=== PATIENT | male | born 1935 | race Caucasian/White ===

== ENCOUNTER 2024-10-03 09:41 | Observation (INO) | payer MEDICARE, SELFPAY ==
[2024-10-03] VITALS (116 sets, daily range): BP systolic 78–190; BP diastolic 46–126; PULSE 51–108; RESP 11–25; TEMP 36.7; O2SAT 81–100; BMI 27.3
--- NOTE | 2024-10-03 09:42 | ECG_ITS ---
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 Measurements Intervals [place] Rate: 85 P: 6 AK: 194 QRS: -47 QRSD: 122 T: 38 QT: 398 QTc: 475 Interpretive Statements SINUS RHYTHM LEFT ANTERIOR FASCICULAR BLOCK [QRS AXIS <= -45, QR IN I, RS IN II] VOLTAGE CRITERIA FOR LVH [MEETS CRITERIA IN ONE OF: R(aVL), S(V1), R(V5), R(V5/V6)+S(V1)] No previous ECG available for comparison Electronically Signed On 10-03-2024 13:51:36 TRACER POWDER BLENDER by Rigoberto Brown M.D. [id number]
--- NOTE | 2024-10-03 09:42 | XRR_ITS ---
PROCEDURE INFORMATION: Exam: XR Chest Exam date and time: 10/03/2024 10:00 AM Age: 89 years old Clinical indication: Dyspnea; Additional info: Dyspnea/cough TECHNIQUE: Imaging protocol: Radiologic exam of the chest. Views: 1 view. COMPARISON: No relevant prior studies available. FINDINGS: Lungs: The lungs are hyperinflated. There is asymmetric prominence of the peripheral interstitium on the right. This could be acute or chronic. No focal consolidation is appreciated. Pleural spaces: Unremarkable. No pleural effusion. No pneumothorax. Heart/Mediastinum: The heart is slightly enlarged. There is calcified plaque involving the aorta. Bones/joints: There are postoperative changes status post reverse shoulder arthroplasty on the left. XR/XR chest 1V portable [id number] IMPRESSION: 1. Mild cardiomegaly. 2. Lung hyperinflation. 3. Prominence of the interstitial lung markings peripherally on the right. This could be chronic or potentially could represent an acute pneumonitis. No focal consolidation is appreciated.
[2024-10-03] MEDS: aspirin 81 mg Chew Tablet 324 MG PO (09:47)
[2024-10-03 09:57] LABS: Basophils # 0.1 10^3/uL (0.0-0.1); Basophils % 0.7 %; Eosinophils # 0.2 10^3/uL (0.0-0.8); Eosinophils % 2.7 %; Hematocrit 41.7 % (37-53); Lymphocytes # 1.8 10^3/uL (0.8-4.8); Lymphocytes % 25.8 %; Mean Corpuscular HGB Conc 33.3 g/dL (30-55); Mean Corpuscular Hemoglobin 31.3 pg (27-33); Mean Corpuscular Volume 93.9 fl (82-101); Mean Platelet Volume 9.2 fL (7.4-10.4); Monocytes # 0.6 10^3/uL (0.2-0.9); Monocytes % 8.4 %; Neutrophils # 4.45 10^3/uL (1.8-7.7); Neutrophils % 62.3 %; Nucleated Red Blood Cells % 0 %; Platelet Count 278 10^3/cmm (157-399); Red Blood Count 4.44 10^6/uL (3.85-5.65); Red Cell Distribution Width 12.1 % (12.1-15.1); White Blood Count 7.14 10^3/uL (3.29-11.43)
[2024-10-03 10:18] LABS: Troponin(5th) Baseline 13 ng/L (0-15)
[2024-10-03 10:20] LABS: Alanine Aminotransferase 10 U/L (0-41); Albumin Level 4.1 g/dL (3.5-5.2); Alkaline Phosphatase 68 U/L (40-130); Aspartate Amino Transferase 14 U/L (0-40); Blood Urea Nitrogen 15 mg/dL (8-23); Calcium 8.8 mg/dL (8.5-10.5); Carbon Dioxide 24 mmol/L (22-29); Chloride 105 mmol/L (98-107); Globulin 2.2 g/dL (1.3-4.6); Glucose 99 mg/dL (65-115); Osmolality Calculated 295 mOsm/kg (285-295); Sodium 142 mmol/L (136-145); Total Bilirubin 0.4 mg/dL (0.15-1.2); Total Protein 6.3 g/dL (6.6-8.7)
--- NOTE | 2024-10-03 10:26 | PC.PHAR ---
Pt states takes Flomax 0.4mg hs, Quinine Sulfate qpm, Senokot prn, and some medication for his throat that starts with a P. Unable to locate the medication for his throat.
[2024-10-03 10:30] LABS: Anion Gap 16.7 (5-19); Potassium 3.7 mmol/L (3.5-5.1)
--- NOTE | 2024-10-03 11:16 | ED_ITS ---
HPI - Weakness 2 General: Chief complaint: Weakness Stated complaint: cardiac Time Seen by Provider: 10/03/24 09:42 History of Present Illness: 59-year-old male presents the emergency room he was traveling to the area while he was driving he felt faint lightheaded and dizzy allowed his to drive for a while. They continue to drive and eventually made it to this area they stopped at a local truck stop got cast. Is a relieving. She began to feel worse. He flagged down a state patrol and who called EMS for them. EMS reports that while they were monitoring him he had a couple episodes where he bradycardia down into the range of the 30s and they given a single dose of atropine. He has been asymptomatic since. He has not had any chest pain since they picked him up. He has had a couple of these episodes that seem much less severe in the several days prior. Patient reports being impaired glucose tolerance he has no known history of any cardiac disease or arrhythmias Associated symptoms: Denies chest pain, chills, dysuria or fever(s) Review of Systems 2 Const: Denies: fever(s) or chills Card: Reports: palpitations and irregular heart rhythm; Denies: chest pain Resp: Denies: dyspnea GI: Denies: abdominal pain : Denies: dysuria, urinary frequency or urinary urgency Musc: Denies: neck pain or back pain Skin/Breast: Denies: rash Physical Exam 2 Const: COMMON NORMALS: no acute distress GENERAL APPEARANCE: cooperative and comfortable ORIENTATION/CONSCIOUSNESS: Yes awake, Yes oriented to person, Yes oriented to place and Yes oriented to time HENMT: COMMON NORMALS: normocephalic, atraumatic and hearing grossly normal bilaterally HEAD & SCALP: normocephalic and atraumatic Resp: COMMON NORMALS: normal respiratory effort, No retractions, No use of accessory muscles and clear to auscultation bilaterally AUSCULTATION: clear to auscultation bilaterally Cardio: COMMON NORMALS: regular rate, regular rhythm and No murmurs present (Cardio) RATE: regular rate RHYTHM: regular rhythm GI: COMMON NORMALS: Soft to palpation and No hepatosplenomegaly present A USCULTATION: Yes normoactive bowel sounds PALPATION: Yes Soft to palpation, No Tenderness to palpation present (GI), No Guarding due to palpation present (GI) and Yes No hepatosplenomegaly present Extremity: COMMON NORMALS: normal to inspection, capillary refill normal, no clubbing, cyanosis or edema, no calf tenderness and no pedal edema Neuro: SENSORIUM/ORIENTATION: Yes oriented to person, Yes oriented to place and Yes oriented to time Skin: COMMON NORMALS: no rashes or lesions noted GENERAL SKIN EXAM: no rashes or lesions noted Course 2 Vital Signs: Vital signs: Vital Signs Temperature 98.1 F 10/03/24 13:45 Pulse Rate 69 10/03/24 13:45 Respiratory Rate 17 10/03/24 13:45 Blood Pressure 136/79 10/03/24 13:45 Pulse Oximetry 97 10/03/24 13:45 Oxygen Delivery Me thod Room Air 10/03/24 14:16 MDM - Weakness Medical Decision Making Laboratory test unremarkable however patient does have documented rhythm down into the 20s and 30s he did respond to atropine he said no further bradycardic episodes since. While we were interviewing the patient he states he began to feel lightheaded and dizzy but his rhythm remained in normal sinus rhythm with no bradycardia. Cardiac enzymes are negative. Will place the patient on observation in ICU discussed with hospitalist orders written Medical Records I reviewed the patient's medical records. Lab Data I reviewed the patient's lab results. 10/03/24 09:51 10/03/24 09:51 Radiology Impressions Chest X-Ray 10/03/24 09:42 IMPRESSION: 1. Mild cardiomegaly. 2. Lung hyperinflation. 3. Prominence of the interstitial lung markings peripherally on the right. This could be chronic or potentially could represent an acute pneumonitis. No focal consolidation is appreciated. Laboratory Results WBC 7.14 10^3/uL (3.29-11.43) 10/03/24 09:51 RBC 4.44 10^6/uL (3.85-5.65) 10/03/24 09:51 Hgb 13.90 g/dL (11.27-16.99) 10/03/24 09:51 Hct 41.7 % (37-53) 10/03/24 09:51 MCV 93.9 fl (82-101) 10/03/24 09:51 MCH 31.3 pg (27-33) 10/03/24 09:51 MCHC 33.3 g/dL (30-55) 10/03/24 09:51 RDW 12.1 % (12.1-15.1) 10/03/24 09:51 Plt Count 278 10^3/cmm (157-399) 10/03/24 09:51 MPV 9.2 fL (7.4-10.4) 10/03/24 09:51 Neut % (Auto) 62.3 % 10/03/24 09:51 Lymph % (Auto) 25.8 % 10/03/24 09:51 Wallace % (Auto) 8.4 % 10/03/24 09:51 Eos % (Auto) 2.7 % 10/03/24 09:51 Baso % (Auto) 0.7 % 10/03/24 09:51 Neut # (Auto) 4.45 10^3/uL (1.8-7.7) 10/03/24 09:51 Lymph # (Auto) 1.8 10^3/uL (0.8-4.8) 10/03/24 09:51 Wallace # (Auto) 0.6 10^3/uL (0.2-0.9) 10/03/24 09:51 Eos # (Auto) 0.2 10^3/uL (0.0-0.8) 10/03/24 09:51 Baso # (Auto) 0.1 10^3/uL (0.0-0.1) 10/03/24 09:51 Nucleated RBC % (auto) 0 % 10/03/24 09:51 Nucleated RBCs # 0.0 /100WBC 10/03/24 09:51 PT 14.00 SECONDS (12.1-14.9) 10/03/24 09:51 INR 1.04 (0.8-1.2) 10/03/24 09:51 D-Dimer 0.44 ug/mLFEU (0-0.59) 10/03/24 09:51 Sodium 142 mmol/L (136-145) 10/03/24 09:51 Potassium 3.7 mmol/L (3.5-5.1) 10/03/24 09:51 Chloride 105 mmol/L (98-107) 10/03/24 09:51 Carbon Dioxide 24 mmol/L (22-29) 10/03/24 09:51 Anion Gap 16.7 (5-19) 10/03/24 09:51 BUN 15 mg/dL (8-23) 10/03/24 09:51 Creatinine 0.9 mg/dL (0.7-1.2) 10/03/24 09:51 GFR Calculation Not Reportable 10/03/24 09:51 Glucose 99 mg/dL (65-115) 10/03/24 09:51 Estimat Average Glucose 128 10/03/24 09:51 Hemoglobin A1c 6.1 % (4.0-6.0) H 10/03/24 09:51 Calculated Osmolality 295 mOsm/kg (285-295) 10/03/24 09:51 Calcium 8.8 mg/dL (8.5-10.5) 10/03/24 09:51 Iron 68 ug/dL (59-158) 10/03/24 09:51 TIBC 204 mcg/dl 10/03/24 09:51 % Saturation 33.3 % (20-50) 10/03/24 09:51 Unsat Iron Binding 136 ug/dL (112-347) 10/03/24 09:51 Total Bilirubin 0.4 mg/dL (0.15-1.2) 10/03/24 09:51 AST 14 U/L (0-40) 10/03/24 09:51 ALT 10 U/L (0-41) 10/03/24 09:51 Alkaline Phosphatase 68 U/L (40-130) 10/03/24 09:51 Troponin T Baseline 13 ng/L (0-15) 10/03/24 09:51 Troponin T 120 Minute 12.10 ng/L (0-15) 10/03/24 11:43 Delta Troponin T -0.90 ABS# (0-10) L 10/03/24 11:43 Total Protein 6.3 g/dL (6.6-8.7) L 10/03/24 09:51 Albumin 4.1 g/dL (3.5-5.2) 10/03/24 09:51 Globulin 2.2 g/dL (1.3-4.6) 10/03/24 09:51 Vitamin B12 269 pg/mL (232-1245) 10/03/24 09:51 Procalcitonin 0.04 ng/mL (0-0.5) 10/03/24 09:51 TSH 1.22 uIU/mL (0.27-4.20) 10/03/24 09:51 Urine Color Yellow (Yellow) 10/03/24 10:06 Urine Appearance Clear (CLEAR) 10/03/24 10:06 Urine pH 8.0 (5-7) A 10/03/24 10:06 Ur Specific [place] 1.007 (1.005-1.030) 10/03/24 10:06 Urine Protein Negative (Negative) 10/03/24 10:06 Urine Glucose (UA) Negative (Normal) 10/03/24 10:06 Urine Ketones Negative (Negative) 10/03/24 10:06 Urine Blood Negative (Negative) 10/03/24 10:06 Urine Nitrate Negative (Negative) 10/03/24 10:06 Urine Bilirubin Negative (Negative) 10/03/24 10:06 Urine Urobilinogen 1.0 mg/dL (Negative) 10/03/24 10:06 Ur Leukocyte Esterase Negative (Negative) 10/03/24 10:06 Urine RBC 0-2 /hpf (0-2) 10/03/24 10:06 Urine WBC 0-5 /hpf (0-5) 10/03/24 10:06 Ur Squamous Epith Cells 0-5 /hpf (0-5) 10/03/24 10:06 Amorphous Sediment Not Reportable 10/03/24 10:06 Urine Bacteria None seen /hpf (NONE) 10/03/24 10:06 Hyaline Casts 0-4 /lpf H 10/03/24 10:06 Urine Opiates Screen Negative ng/mL (Negative) 10/03/24 10:06 Ur Barbiturates Screen Negative ng/mL (Negative) 10/03/24 10:06 Ur Phencyclidine Scrn Negative ng/mL (Negative) 10/03/24 10:06 Ur Amphetamines Screen Negative ng/mL (Negative) 10/03/24 10:06 U Benzodiazepines Scrn Negative ng/mL (Negative) 10/03/24 10:06 Urine Cocaine Screen Negative ng/mL (Negative) 10/03/24 10:06 U Marijuana (THC) Screen Negative ng/mL (Negative) 10/03/24 10:06 All radiology interpretation(s) finalized by discharge Discharge Plan Discharge Patient Disposition: Admitted As Inpatient Admit Provider: Zeina,Asif Clinical Impression: Symptomatic bradycardia, Near syncope Condition: Stable Coding Level of Care Code ED Mail Sorting Supervisor for Chg Fwd Related Data Home Medications Medication Instructions Recorded Confirmed quinine sulfate 324 mg capsule 324 mg PO QPM 10/03/24 10/03/24 sennosides 8.6 mg tablet (Senokot) 8.6 mg PO QPM PRN Constipation 10/03/24 10/03/24 tamsulosin 0.4 mg capsule (Flomax) 0.4 mg PO QPM 10/03/24 10/03/24 Allergies Allergy/AdvReac Type Severity Reaction Status Date / Time morphine Allergy ADR-Confusi Verified 10/03/24 09:48 on
--- NOTE | 2024-10-03 11:43 | ECG_ITS ---
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 Measurements Intervals [place] Rate: 76 P: -1 CO: 203 QRS: -46 QRSD: 125 T: 16 QT: 420 QTc: 474 Interpretive Statements SINUS RHYTHM WITH OCCASIONAL VENTRICULAR PREMATURE COMPLEXES POSSIBLE RIGHT VENTRICULAR CONDUCTION DELAY [RSR (QR) IN V1/V2] LEFT ANTERIOR FASCICULAR BLOCK [QRS AXIS <= -45, QR IN I, RS IN II] VOLTAGE CRITERIA FOR LVH [MEETS CRITERIA IN ONE OF: R(aVL), S(V1), R(V5), R(V5/V6)+S(V1)] POSSIBLE SEPTAL MYOCARDIAL INFARCTION , PROBABLY OLD [30 ms Q WAVE IN V1/V2] Compared to ECG 10/03/2024 09:45:47 Ventricular premature complex(es) now present Myocardial infarct finding now present Electronically Signed On 10-03-2024 13:54:37 RACKMAN by Rigoberto Brown M.D. [id number]
[2024-10-03 12:14] LABS: Amphetamines Screen Urine Negative (Negative); Barbiturates Screen Urine Negative (Negative); Benzodiazepines Screen Urine Negative (Negative); Cocaine Screen Urine Negative (Negative); Opiate Screen Urine Negative (Negative); PCP Screen Urine Negative (Negative); THC Screen Urine Negative (Negative)
[2024-10-03 12:18] LABS: INR 1.04 (0.8-1.2)
[2024-10-03 12:20] LABS: D Dimer 0.44 ug/mLFEU (0-0.59)
[2024-10-03 12:32] LABS: Procalcitonin 0.04 ng/mL (0-0.5)
--- NOTE | 2024-10-03 12:58 | USCV_ITS ---
Raman Estrella Age: 89 Gender: M : 1935 Exam Date: 10/03/2024 16:09 Ordering Phys: Asif Pastrana MD Technologist: Exam Location: [facility] [place] Indication: Bradycardia BP: 180 / 99 HR: 73 Rhythm: Sinus Technical Quality: Adequate MEASUREMENTS (Male / Female) Normal Values 2D ECHO LV Diastolic Diameter PLAX 4.8 cm 4.2 - 5.9 / 3.9 - 5.3 cm IVS Diastolic Thickness 1.1 cm 0.6 - 1.0 / 0.6 - 0.9 cm IVS Systolic Thickness 1.5 cm LVPW Diastolic Thickness 1.6 cm 0.6 - 1.0 / 0.6 - 0.9 cm LVPW Systolic Thickness 1.5 cm LVOT Diameter 2.3 cm LV Ejection Fraction 2D Teich 42.5 % LV Ejection Fraction MOD 4C 64.1 % LV Ejection Fraction MOD 2C 54.7 % LV Ejection Fraction 2C AL 56.2 % LA Diameter 4.6 cm RA Systolic Volume 4C AL 48.2 ml RA Systolic Volume 4C MOD 44.0 ml Aorta at Sinotubular Diameter 2.9 cm M-MODE LA Ao Ratio MM 1.2 AV Cusp Separation MM 2.0 cm DOPPLER AV Peak Velocity 201.0 cm/s LVOT Peak Velocity 69.0 cm/s AV Area Cont Eq vti 2.0 cm squared AV Area Cont Eq pk 1.4 cm squared MV Peak Velocity 112.0 cm/s MV Area PHT 2.1 cm squared Mitral E to A Ratio 0.6 TV Peak Velocity 334.5 cm/s TR Peak Velocity 387.0 cm/s TR Peak Gradient 59.9 mmHg TV Peak E Velocity 80.0 cm/s PV Peak Velocity 91.0 cm/s FINDINGS Left Ventricle Left ventricle is normal in size. LV systolic function is normal with EF of 50 to 55%. No regional wall motion abnormalities. Basal septal hypertrophy. Grade 1 diastolic dysfunction. Right Ventricle Normal in size and function Right Atrium Normal in size Left Atrium Normal in size Mitral Valve Structurally normal mitral valve. Mild mitral regurgitation. Aortic Valve Aortic valve is thickened. No significant stenosis or regurgitation. Tricuspid Valve Insufficient TR jet to calculate RVSP Pulmonic Valve Mild pulmonic regurgitation. Insufficient TR jet to calculate RVSP Pericardium Normal Aorta Normal in size IVC Not well visualized. CONCLUSIONS LV systolic function is normal with EF of 50 to 55%. Basal septal hypertrophy. Grade 1 diastolic dysfunction. Mild mitral regurgitation. No comparison studies are available. Curry Garcia MD (Electronically Signed) Final Date: 04 October 2024 12:14 S
[2024-10-03 13:07] LABS: Bilirubin Urine Negative (Negative); Blood Urine Negative (Negative); Glucose Urine UA Negative (Normal); Ketones Urine Negative (Negative); Leukocyte Esterase Urine Negative (Negative); Nitrate Urine Negative (Negative); Protein Urine Negative (Negative); Specific Gravity, Urine 1.007 (1.005-1.030); Urine Appearance Clear (CLEAR); Urine Color Yellow (Yellow)
[2024-10-03 13:12] LABS: Add Urine Microscopic? YES; Bacteria Urine None Seen /hpf; Hyaline Casts Urine 0-4 /lpf; RBC Urine 0-2 /hpf (0-2); Squamous Epithelial Cell Urine 0-5 /hpf (0-5); WBC Urine 0-5 /hpf (0-5)
[2024-10-03 13:19] LABS: Estmated Average Glucose 128; Hemoglobin A1C 6.1 % (4.0-6.0)
[2024-10-03 13:45] LABS: Iron 68 ug/dL (59-158); Percent Saturation 33.3 % (20-50); Thyroid Stimulating Hormone 1.22 uIU/mL (0.27-4.20); Total Iron Binding Capacity 204 mcg/dl; Unsaturated Iron Binding 136 ug/dL (112-347); Vitamin B12 269 pg/mL (232-1245)
--- NOTE | 2024-10-03 15:05 | P.HP_ITS ---
Providers/Chief Complaint 2 Admitting Physician: Asif Pastrana MD Primary Care Provider: Acosta Bragg DO Chief Complaint: cardiac History of Present Illness Raman Estrella is a 89 year old male with no segment past medical history above traveling today to meet his family for Thanksgiving dinner when he started having left-sided chest heaviness associated with funny feeling with episodes of almost passing out. Patient had similar episodes almost 4 times while [address] and each time the events were getting worse hence he decided to tail puller. After pulling over he almost felt as if he is going to pass out hence he called for a real estate rental agent who called the EMS. On arrival as per the EMS his heart rates were running in 30s and he was given dose of IV atropine. Patient has not had any further episodes since then. Denies any nausea, vomiting, headache, runny nose, cough today. Denies having any similar episodes in the past. Denies having any chest pain on rest on exertion in the past. Denies having any family or personal history of heart disease. Denies any changes in medications recently. Denies any use of new herbal products. Review of Systems 2 General: Reports: 10 or more systems reviewed and unremarkable except in HPI and below Const: Denies: fever(s), chills, body aches, change in appetite, change in weight, malaise, night sweats, diaphoresis, change in sleep pattern, daytime sleepiness or snoring Eyes: Denies: change in vision, blurry vision, photophobia, eye discomfort or eye discharge ENMT: Denies: throat pain, enlarged tonsils, hoarseness, mouth pain, oral sores, dry mouth, tinnitus, nasal congestion or post nasal drip Card: Denies: chest pain, palpitations, irregular heart rhythm, edema, swelling of feet/ankles, lightheadedness, syncope, pre-syncope, dyspnea on exertion, orthopnea, leg pain with exertion or acrocyanosis Resp: Denies: dyspnea, productive cough, non-productive cough, wheezing, stridor, pain on inspiration, change in phlegm color, hemoptysis or chest congestion GI: Denies: abdominal pain, nausea, vomiting, hematemesis, coffee ground emesis, dysphagia, heartburn, diarrhea, constipation, bloating, GI cramping, change in bowel habits, pain on defecation, hematochezia or melena : Denies: flank pain, difficulty urinating, dysuria, urinary frequency, urinary urgency, urinary hesitancy, urinary dribbling, difficulty starting urination, change in urine stream, nocturia or hematuria Musc: Denies: neck pain, back pain, extremity pain, joint pain, joint swelling, joint redness, joint stiffness or limited range of motion Neuro: Denies: headache(s), numbness in extremities, weakness in extremities, sensory changes, lack of coordination, difficulty walking, frequent falls, dizziness, vertigo, confusion, Slurred speech present, difficulty communicating thoughts or seizure-like activity Psych: Denies: anxiety, depression, mood swings, panic attacks, hopelessness or irritability Endo: Denies: polyuria, polydipsia, tired all the time, cold intolerance, excessive sweating, flushing or heat intolerance Jesse/Lymph: Denies: easy bruising or easy bleeding All/Imm: Denies: tongue swelling, facial swelling or acute wheezing Medications/Allergies Home Medications Medication Instructions Recorded Confirmed Last Taken Type quinine sulfate 324 mg capsule 324 mg PO QPM 10/03/24 10/03/24 10/02/24 History sennosides 8.6 mg tablet (Senokot) 8.6 mg PO QPM PRN Constipation 10/03/24 10/03/24 10/02/24 History tamsulosin 0.4 mg capsule (Flomax) 0.4 mg PO QPM 10/03/24 10/03/24 10/02/24 History Allergies Allergy/AdvReac Type Severity Reaction Status Date / Time morphine Allergy ADR-Confusi Verified 10/03/24 09:48 on PFSH Acute 2 PFSH: Medical History (Updated 10/03/24 @ 15:06 by Asif Pastrana MD) SBO (small bowel obstruction) Surgical History (Updated 10/03/24 @ 15:06 by Asif Pastrana MD) H/O knee surgery H/O shoulder surgery Social History (Updated 10/03/24 @ 15:24 by Asif Pastrana MD) Smoking and tobacco/nicotine status: never used tobacco/nicotine Second hand smoke exposure: No Alcohol intake: never Substance/Drug Use: never Caregiver/support person: Yes Lives independently: Yes Household members: spouse Housing: House Marital status: Vitals/I&O/Wt Last Vital Signs Temp 98.1 F 10/03/24 13:45 Pulse 69 10/03/24 13:45 Resp 17 10/03/24 13:45 BP 136/79 10/03/24 13:45 Pulse Ox 97 10/03/24 13:45 O2 Del Method Room Air 10/03/24 14:16 Weight last 48 hrs Weight 84.17 kg Weight 83.915 kg Physical Exam 2 Narrative: General: No acute distress, AO x3 HEENT: PERRLA, pupils bilaterally equal and reactive Chest: Normal vesicular breath sounds, no added sounds, equal good air entry bilaterally CVS: S1-S2 regular, no murmurs, no tachycardia, no gallops, no rubs Abdomen: Soft, nontender, no organomegaly, bowel sounds present Neuro: No focal deficits, no facial deformity, AO x3, power 5/5 in all limbs Data 10/03/24 09:51 10/03/24 09:51 A&P Assessment and plan (1) Near syncope: Most likely in setting of symptomatic bradycardia. Noticed by EMS on arrival at the scene. Received 1 dose of atropine. Check orthostatic blood pressures. (2) Symptomatic bradycardia: As noticed by EMS. Telemonitoring. Check TSH, electrolytes, troponin cycle. Check echocardiogram. Plan to monitor overnight. Discussed further options of possibility of an event monitor at discharge along with a possible stress test given symptoms being preceded by chest heaviness in detail with the patient. He states if he does not have any further episodes overnight he would want to be discharged so he can follow-up with his PCP in his town and then get things done closer to his house. Check A1c, lipid panel. If he has recurrent episode can plan to start dopamine versus IV atropine. Monitor blood pressures. Goal blood pressure less than 140/90 mmHg. Plan Full code Cardiac diet Heparin for DVT prophylaxis Protonix for PUD prophylaxis Continue with home dose of Flomax. Attestations 2 Medical Necessity Statement*: Admitted under observation for management of near syncope in setting of symptomatic bradycardia for which patient required IV atropine by EMS in field. Diagnoses Near syncope R55 Symptomatic bradycardia R00.1
[2024-10-03 16:15] LABS: Troponin 5 6HR 12.33 ng/L (0-15)
[2024-10-03 16:36] LABS: Troponin 5 6HR Delta -0.67 ng/L (0-12)
[2024-10-03 20:56] LABS: Glucose Point of Care 197 mg/dL (70-110)
[2024-10-04] VITALS (65 sets, daily range): BP systolic 111–168; BP diastolic 63–92; PULSE 51–90; RESP 10–29; TEMP 36.7–36.8; O2SAT 89–100; BMI 27.1
[2024-10-04] MEDS: heparin 5,000 unit/mL INJ 1 mL 5000 UNIT SUBCUT (00:47)
[2024-10-04 03:48] LABS: Basophils # 0.1 10^3/uL (0.0-0.1); Basophils % 0.8 %; Eosinophils # 0.4 10^3/uL (0.0-0.8); Eosinophils % 5.5 %; Lymphocytes # 1.7 10^3/uL (0.8-4.8); Lymphocytes % 25.1 %; Mean Corpuscular HGB Conc 32.9 g/dL (30-55); Mean Corpuscular Hemoglobin 31.4 pg (27-33); Mean Corpuscular Volume 95.3 fl (82-101); Mean Platelet Volume 9.4 fL (7.4-10.4); Monocytes # 0.6 10^3/uL (0.2-0.9); Monocytes % 9.3 %; Neutrophils # 3.88 10^3/uL (1.8-7.7); Nucleated Red Blood Cells % 0 %; Platelet Count 249 10^3/cmm (157-399); Red Cell Distribution Width 12.3 % (12.1-15.1); White Blood Count 6.57 10^3/uL (3.29-11.43)
[2024-10-04 04:10] LABS: Alanine Aminotransferase 7 U/L (0-41); Albumin Level 3.7 g/dL (3.5-5.2); Alkaline Phosphatase 62 U/L (40-130); Anion Gap 13.8 (5-19); Aspartate Amino Transferase 12 U/L (0-40); Blood Urea Nitrogen 13 mg/dL (8-23); Calcium 8.7 mg/dL (8.5-10.5); Carbon Dioxide 27 mmol/L (22-29); Chloride 106 mmol/L (98-107); Creatinine Clr Calc Pharmacy 70.0115; Globulin 2.4 g/dL (1.3-4.6); Glucose 109 mg/dL (65-115); Magnesium 2.2 mg/dL (1.7-2.3); Osmolality Calculated 297 mOsm/kg (285-295); Phosphorus 4.2 mg/dL (2.5-4.5); Potassium 3.8 mmol/L (3.5-5.1); Sodium 143 mmol/L (136-145); Total Bilirubin 0.4 mg/dL (0.15-1.2); Total Protein 6.1 g/dL (6.6-8.7)
[2024-10-04 04:23] LABS: Procalcitonin 0.05 ng/mL (0-0.5)
[2024-10-04 04:24] LABS: Folate Level 8.5 ng/mL (4.5-32.2)
[2024-10-04 04:34] LABS: Cholesterol 155 mg/dL (0-200); HDL Cholesterol 47 mg/dL (60-100); LDL Cholesterol Calculated 96 mg/dL (50-129); LDL HDL Ratio 2.04 RATIO (0.00-3.22); Triglycerides 61 mg/dL (0-150)
--- NOTE | 2024-10-04 12:27 | P.CONIM_ITS ---
Providers/Reason For Consult 2 Attending Physician: Asif Pastrana MD Primary Care Provider: Acosta Bragg DO History of Present Illness History of Present Illness Raman Estrella is a 89 year old male Medications/Allergies Home Medications Medication Instructions Recorded Confirmed Last Taken Type quinine sulfate 324 mg capsule 324 mg PO QPM 10/03/24 10/03/24 10/02/24 History sennosides 8.6 mg tablet (Senokot) 8.6 mg PO QPM PRN Constipation 10/03/24 10/03/24 10/02/24 History tamsulosin 0.4 mg capsule (Flomax) 0.4 mg PO QPM 10/03/24 10/03/24 10/02/24 History Allergies Allergy/AdvReac Type Severity Reaction Status Date / Time morphine Allergy ADR-Confusi Verified 10/03/24 09:48 on Current Medications Generic Name Dose Route Start Last Admin Trade Name Freq PRN Reason Stop Dose Admin Heparin Sodium (Porcine) 5,000 unit 10/03/24 13:42 10/04/24 00:47 Heparin 5,000 Unit/Ml Inj 1 Ml SUBCUT 5,000 unit Q12H BRINDA Administration Pantoprazole Sodium 40 mg 10/03/24 13:42 10/03/24 14:37 Pantoprazole 40 Mg Sdv IVP Not Given Q24H BRINDA Tamsulosin HCl 0.4 mg 10/03/24 18:00 10/03/24 17:31 Tamsulosin 0.4 Mg Capsule PO Not Given QPM BRINDA PFSH Acute 2 PFSH: Medical History (Updated 10/03/24 @ 15:06 by Asif Pastrana MD) SBO (small bowel obstruction) Surgical History (Updated 10/03/24 @ 15:06 by Asif Pastrana MD) H/O knee surgery H/O shoulder surgery Social History (Updated 10/03/24 @ 15:24 by Asif Pastrana MD) Smoking and tobacco/nicotine status: never used tobacco/nicotine Second hand smoke exposure: No Alcohol intake: never Substance/Drug Use: never Caregiver/support person: Yes Lives independently: Yes Household members: spouse Housing: House Marital status: Vitals/I&O/Wt Last Vital Signs Temp 98.2 F 10/04/24 04:00 Pulse 66 10/04/24 12:00 Resp 12 10/04/24 12:00 BP 152/81 10/04/24 12:00 Pulse Ox 92 10/04/24 12:00 O2 Del Method Room Air 10/04/24 06:30 10/03/24 10/04/24 10/04/24 22:59 06:59 14:59 Intake Total 380 / 380 480 / 860 120 / 120 Balance 380 / 380 480 / 860 120 / 120 Weight last 48 hrs Weight 183 lb 11.2 oz Weight 185 lb 9 oz Weight 185 lb Data 10/04/24 03:21 10/04/24 03:21 Coding Level of Care Code Acute Code for Chg Fwd
--- NOTE | 2024-10-04 13:08 | P.DS_ITS ---
Discharge Providers Date of Admission: 10/03/24 13:37 Date of Discharge: October 04, 2024 Attending Provider at Admission: Asif Pastrana MD Attending Provider at Discharge: Asif Pastrana MD Consults: Cardiology: Dr. Garcia Primary Care Provider: Acosta Bragg DO Diagnoses at Discharge Discharge Diagnosis (1) Near syncope: Status: Acute (2) Symptomatic bradycardia: Status: Acute Reason for Visit Reason for Visit: cardiac Hospital Course Hospital Course Raman Estrella is a 89 year old male with no segment past medical history above traveling today to meet his family for Thanksgiving dinner when he started having left-sided chest heaviness associated with funny feeling with episodes of almost passing out. Patient had similar episodes almost [address] and each time the events were getting worse hence he decided to lung puller. After pulling over he almost felt as if he is going to pass out hence he called for a real estate sales associate who called the EMS. On arrival as per the EMS his heart rates were running in 30s and he was given dose of IV atropine. Patient has not had any further episodes since then. Denies any nausea, vomiting, headache, runny nose, cough today. Denies having any similar episodes in the past. Denies having any chest pain on rest on exertion in the past. Denies having any family or personal history of heart disease. Denies any changes in medications recently. Denies any use of new herbal products. Patient was admitted under observation for evaluation and monitoring for symptomatic bradycardia. He is further blood work including electrolytes, thyroid panel, vitamin B12 levels remain normal. Patient's troponin levels remained negative. Echocardiogram was done which showed normal EF without regional wall motion abnormality or further workup with structure abnormality. Patient did have few episodes of heart rate going down to 30s with occasional APCs and VPCs to patient remained asymptomatic. Cardiology was consulted for further recommendations. Patient was given an option stress test and event monitor with possibility of need for pacemaker as an outpatient as he did not have any more than 3 seconds of pause on telemetry. Patient verbalized understanding and would want to to be discharged home for further workup as an outpatient. His care was also discussed with his outpatient primary care provider and all the directions were discussed in detail. He is been discharged in hemodynamically stable condition with advised to avoid driving, follow-up with PCP as an outpatient at the earliest for outpatient stress test and event monitor placement. Physical Exam Narrative: General: No acute distress, AO x3 HEENT: PERRLA, pupils bilaterally equal and reactive Chest: Normal vesicular breath sounds, no added sounds, equal good air entry bilaterally CVS: S1-S2 regular, no murmurs, no tachycardia, no gallops, no rubs Abdomen: Soft, nontender, no organomegaly, bowel sounds present Neuro: No focal deficits, no facial deformity, AO x3, power 5/5 in all limbs Discharge Data Studies Completed and Pending Completed Studies During Hospitalization Category Date Time Status XR chest 1V portable [id number] Stat Exams 10/03/24 09:42 Completed CV. echo complete* [id number] Routine Ultrasound 10/03/24 12:58 Completed Radiology Impressions Chest X-Ray 10/03/24 09:42 IMPRESSION: 1. Mild cardiomegaly. 2. Lung hyperinflation. 3. Prominence of the interstitial lung markings peripherally on the right. This could be chronic or potentially could represent an acute pneumonitis. No focal consolidation is appreciated. Echocardiogram: CONCLUSIONS LV systolic function is normal with EF of 50 to 55%. Basal septal hypertrophy. Grade 1 diastolic dysfunction. Mild mitral regurgitation. No comparison studies are available. Curry Garcia MD (Electronically Signed) Final Date: 04 October 2024 Laboratory Results WBC 6.57 10^3/uL (3.29-11.43) 10/04/24 03:21 RBC 4.30 10^6/uL (3.85-5.65) 10/04/24 03:21 Hgb 13.50 g/dL (11.27-16.99) 10/04/24 03:21 Hct 41.0 % (37-53) 10/04/24 03:21 MCV 95.3 fl (82-101) 10/04/24 03:21 MCH 31.4 pg (27-33) 10/04/24 03:21 MCHC 32.9 g/dL (30-55) 10/04/24 03:21 RDW 12.3 % (12.1-15.1) 10/04/24 03:21 Plt Count 249 10^3/cmm (157-399) 10/04/24 03:21 MPV 9.4 fL (7.4-10.4) 10/04/24 03:21 Neut % (Auto) 59.0 % 10/04/24 03:21 Lymph % (Auto) 25.1 % 10/04/24 03:21 [place] % (Auto) 9.3 % 10/04/24 03:21 Eos % (Auto) 5.5 % 10/04/24 03:21 Baso % (Auto) 0.8 % 10/04/24 03:21 Neut # (Auto) 3.88 10^3/uL (1.8-7.7) 10/04/24 03:21 Lymph # (Auto) 1.7 10^3/uL (0.8-4.8) 10/04/24 03:21 [place] # (Auto) 0.6 10^3/uL (0.2-0.9) 10/04/24 03:21 Eos # (Auto) 0.4 10^3/uL (0.0-0.8) 10/04/24 03:21 Baso # (Auto) 0.1 10^3/uL (0.0-0.1) 10/04/24 03:21 Nucleated RBC % (auto) 0 % 10/04/24 03:21 Nucleated RBCs # 0.0 /100WBC 10/04/24 03:21 PT 14.00 SECONDS (12.1-14.9) 10/03/24 09:51 INR 1.04 (0.8-1.2) 10/03/24 09:51 D-Dimer 0.44 ug/mLFEU (0-0.59) 10/03/24 09:51 Sodium 143 mmol/L (136-145) 10/04/24 03:21 Potassium 3.8 mmol/L (3.5-5.1) 10/04/24 03:21 Chloride 106 mmol/L (98-107) 10/04/24 03:21 Carbon Dioxide 27 mmol/L (22-29) 10/04/24 03:21 Anion Gap 13.8 (5-19) 10/04/24 03:21 BUN 13 mg/dL (8-23) 10/04/24 03:21 Creatinine 0.8 mg/dL (0.7-1.2) 10/04/24 03:21 GFR Calculation Not Reportable 10/04/24 03:21 Glucose 109 mg/dL (65-115) 10/04/24 03:21 POC Glucose 197 mg/dL (70-110) H 10/03/24 20:44 Estimat Average Glucose 128 10/03/24 09:51 Hemoglobin A1c 6.1 % (4.0-6.0) H 10/03/24 09:51 Calculated Osmolality 297 mOsm/kg (285-295) H 10/04/24 03:21 Calcium 8.7 mg/dL (8.5-10.5) 10/04/24 03:21 Phosphorus 4.2 mg/dL (2.5-4.5) 10/04/24 03:21 Magnesium 2.2 mg/dL (1.7-2.3) 10/04/24 03:21 Iron 68 ug/dL (59-158) 10/03/24 09:51 TIBC 204 mcg/dl 10/03/24 09:51 % Saturation 33.3 % (20-50) 10/03/24 09:51 Unsat Iron Binding 136 ug/dL (112-347) 10/03/24 09:51 Total Bilirubin 0.4 mg/dL (0.15-1.2) 10/04/24 03:21 AST 12 U/L (0-40) 10/04/24 03:21 ALT 7 U/L (0-41) 10/04/24 03:21 Alkaline Phosphatase 62 U/L (40-130) 10/04/24 03:21 Troponin T Baseline 13 ng/L (0-15) 10/03/24 09:51 Troponin T 120 Minute 12.10 ng/L (0-15) 10/03/24 11:43 Delta Troponin T -0.90 ABS# (0-10) L 10/03/24 11:43 Troponin T Hi Sens 6Hr 12.33 ng/L (0-15) 10/03/24 15:35 Troponin T Hi Sens 6Hr Delta -0.67 ng/L (0-12) L 10/03/24 15:35 Total Protein 6.1 g/dL (6.6-8.7) L 10/04/24 03:21 Albumin 3.7 g/dL (3.5-5.2) 10/04/24 03:21 Globulin 2.4 g/dL (1.3-4.6) 10/04/24 03:21 Triglycerides 61 mg/dL (0-150) 10/04/24 03:21 Cholesterol 155 mg/dL (0-200) 10/04/24 03:21 LDL Cholesterol, Calc 96 mg/dL (50-129) 10/04/24 03:21 HDL Cholesterol 47 mg/dL (60-100) L 10/04/24 03:21 LDL/HDL Ratio 2.04 RATIO (0.00-3.22) 10/04/24 03:21 Cholesterol/HDL Ratio 3.30 mg/dL (1.0-5.00) 10/04/24 03:21 Vitamin B12 269 pg/mL (232-1245) 10/03/24 09:51 Folate 8.5 ng/mL (4.5-32.2) 10/04/24 03:21 Procalcitonin 0.05 ng/mL (0-0.5) 10/04/24 03:21 TSH 1.22 uIU/mL (0.27-4.20) 10/03/24 09:51 Urine Color Yellow (Yellow) 10/03/24 10:06 Urine Appearance Clear (CLEAR) 10/03/24 10:06 Urine pH 8.0 (5-7) A 10/03/24 10:06 Ur Specific [place] 1.007 (1.005-1.030) 10/03/24 10:06 Urine Protein Negative (Negative) 10/03/24 10:06 Urine Glucose (UA) Negative (Normal) 10/03/24 10:06 Urine Ketones Negative (Negative) 10/03/24 10:06 Urine Blood Negative (Negative) 10/03/24 10:06 Urine Nitrate Negative (Negative) 10/03/24 10:06 Urine Bilirubin Negative (Negative) 10/03/24 10:06 Urine Urobilinogen 1.0 mg/dL (Negative) 10/03/24 10:06 Ur Leukocyte Esterase Negative (Negative) 10/03/24 10:06 Urine RBC 0-2 /hpf (0-2) 10/03/24 10:06 Urine WBC 0-5 /hpf (0-5) 10/03/24 10:06 Ur Squamous Epith Cells 0-5 /hpf (0-5) 10/03/24 10:06 Amorphous Sediment Not Reportable 10/03/24 10:06 Urine Bacteria None seen /hpf (NONE) 10/03/24 10:06 Hyaline Casts 0-4 /lpf H 10/03/24 10:06 Urine Opiates Screen Negative ng/mL (Negative) 10/03/24 10:06 Ur Barbiturates Screen Negative ng/mL (Negative) 10/03/24 10:06 Ur Phencyclidine Scrn Negative ng/mL (Negative) 10/03/24 10:06 Ur Amphetamines Screen Negative ng/mL (Negative) 10/03/24 10:06 U Benzodiazepines Scrn Negative ng/mL (Negative) 10/03/24 10:06 Urine Cocaine Screen Negative ng/mL (Negative) 10/03/24 10:06 U Marijuana (THC) Screen Negative ng/mL (Negative) 10/03/24 10:06 Vitals Last Vital Signs Temp 98.2 F 10/04/24 04:00 Pulse 66 10/04/24 12:00 Resp 12 10/04/24 12:00 BP 152/81 10/04/24 12:00 Pulse Ox 92 10/04/24 12:00 O2 Del Method Room Air 10/04/24 06:30 Discharge Plan Discharge Patient Disposition: Home Condition: Stable Prescriptions: Continued sennosides [Senokot] 8.6 mg Tablet 8.6 mg PO QPM PRN (Reason: Constipation) tamsulosin [Flomax] 0.4 mg Capsule 0.4 mg PO QPM quinine sulfate 324 mg Capsule 324 mg PO QPM Discharge Orders: Discharge Order (Routine); Ordered 10/04/24 Ordered By: Asif Pastrana Referrals: Acosta Bragg DO [Primary Care Provider] - 1-3 days Discharge Diet: Regular Discharge Activity: Resume usual activity and Increase activity as tolerated Patient Instructions: Opioid Safety Activity Restrictions/Additional Instructions: Follow-up with the PCP at the earliest. You should have an outpatient stress test and cardiac event monitor placement. Avoid driving. Please make sure you change positions from laying to sitting and sitting to standing gradually within 1 to 2 minutes. Discharge Attestations Time Spent in Discharge Care*: greater than 30 min Specific Discharge Activities: educating patient, educating and/or supporting family/caregiver, discussing with pcp/other providers, discussing with foster care case manager/social workers/dc planners, documenting/other paperwork and evaluating patient/reviewing data Status at Discharge: Cognitive status at discharge: cognitively intact , Behavioral status at discharge: cooperative , Functional status at discharge: independent ambulation , Overall status at discharge: patient is not back to baseline Quality Metrics Clinical Quality Measures [ No reported AMI, CVA or VTE this stay] Coding Level of Care Code 58947 Total time (in minutes) for Discharge: 60 Diagnoses Near syncope R55 Symptomatic bradycardia R00.1
--- NOTE | 2024-10-04 16:24 | PC.NURSE ---
Discharge Note Patient discharged to home via wheelchair accompanied by . Discharge instructions reviewed with patient and . Belongings returned upon discharge. Upon discharge patient is alert/oriented x4 on room air.
== END 2024-10-04 16:10 | disposition home or self-care (01) ==
LOC: ER 11:17 → ICU 14:29
PROVIDERS: Admitting Provider Student in an Organized Health Care Education/Training Program; Emergency Provider Family Medicine; PCP Family Medicine; Visit Provider Student in an Organized Health Care Education/Training Program
DX: R55 Syncope and collapse (principal); R00.1 Bradycardia, unspecified
CPT/HCPCS: 36415; 36416; 71045; 80053; 80061; 80306; 81001; 82607; 82746; 82962; 83036; 83540; 83550; 83735; 84100; 84145; 84443; 84484; 85025; 85378; 85610; 93005; 93306; 96372; 99285; G0378; J1644